=== PATIENT | male | born 1995 | race Caucasian/White ===

== ENCOUNTER 2021-07-20 09:11 | Emergency (ER) | payer OTHER, SELFPAY ==
[2021-07-20 09:15] VITALS: PULSE 80; RESP 18; TEMP 36.6; O2SAT 100
--- NOTE | 2021-07-20 09:20 | ECG_ITS ---
Measurements Intervals [place] Rate: 64 P: 51 NC: 135 QRS: 72 QRSD: 98 T: 47 QT: 372 QTc: 385 Interpretive Statements SINUS RHYTHM NORMAL ECG NO PREVIOUS ECG AVAILABLE FOR COMPARISON Electronically Signed On 07-20-2021 16:23:00 CDT by Pete Jacinto M.D.
[2021-07-20 09:35] LABS: Basophils Absolute Auto 0.1 K/mm3 (0.0-0.1); Basophils Percent Auto 1.2 % (0.2-1.2); Eosinophils Absolute Auto 0.3 K/mm3 (0-0.3); Eosinophils Percent Auto 5.6 % (0-4.4); Hematocrit 44.2 % (42.0-52.0); Hemoglobin 15.9 g/dL (14.0-18.0); Immature Granulocyte Absolute 0.01 K/mm3 (0.00-0.031); Immature Granulocyte Percent A 0.2 % (0-0.5); Lymphocytes Absolute Auto 1.69 K/mm3 (0.9-3.2); Lymphocytes Percent Auto 33.7 % (18.3-44.2); Mean Corpuscular Volume 86.2 fl (80-100); Mean Platelet Volume 10.4 fl (7.4-10.4); Monocytes Absolute Auto 0.4 K/mm3 (0.1-0.6); Monocytes Percent Auto 8.6 % (2.6-8.5); Neutrophils Absolute Auto 2.6 K/mm3 (1.3-6.7); Neutrophils Percent Auto 50.7 % (45.5-73.1); Platelet Count Result 268 k/mm3 (150-375); Red Blood Count 5.13 M/mm3 (4.6-6.20); Red Cell Distribution Width 11.8 % (11.5-14.5)
[2021-07-20 09:54] VITALS: BP 109/74; PULSE 63
[2021-07-20 09:55] VITALS: BP 121/89; BP 125/93; PULSE 67; PULSE 87
[2021-07-20 09:55] LABS: Alanine Aminotransferase 12 U/L (4-50); Albumin Level 4.9 g/dL (3.5-5.1); Alkaline Phosphatase 47 U/L (38-126); Anion Gap 10 mmol/L (8-16); Aspartate Amino Transferase 23 U/L (17-59); Bilirubin,Total 1.2 mg/dL (0.2-1.3); Blood Urea Nitrogen 10 mg/dL (9-20); Calcium 9.6 mg/dL (8.4-10.2); Carbon Dioxide 24 mmol/L (22-30); Chloride 105 mmol/L (98-107); Estimated CRCL calculation 106 ml/min; Estimated Glomerular Filt Rate > 60; Glucose 103 mg/dL (65-110); Potassium 4.1 mmol/L (3.4-5.0); Sodium 139 mmol/L (137-145)
--- NOTE | 2021-07-20 10:37 | ED.GENADULT ---
HPI - General Adult General Chief complaint: Unspecified Stated complaint: dizzy Time Seen by Provider: 07/20/21 09:16 History of Present Illness HPI narrative: Patient is a 26-year-old male who presents to the ER with feeling lightheaded like he might pass out. Reports he was driving when he began to feel warm and sweaty and lightheaded. He had no syncope. Reports he has been feeling under the weather over the last few days and had poor p.o. intake. He has had daily loose stools. No fevers or chills. No known sick contacts. Denies chest pain or chest pressure. He has had no racing of his heart. No alleviating factors that he can report. Related Data Home Medications Medication Instructions Recorded Confirmed No Home Medications 03/04/19 03/04/19 Allergies Allergy/AdvReac Type Severity Reaction Status Date / Time Sulfa (Sulfonamide Allergy Mild Unknown Verified 07/20/21 09:21 Antibiotics) milk Allergy Unknown Unknown Verified 07/20/21 09:21 Review of Systems Review of Systems: All systems reviewed & are unremarkable except as noted in HPI and below Constitutional: Constitutional: Denies chills, Denies fever(s) and Reports lethargy ENT: Reports nasal congestion and Reports sore throat Cardiovascular: Cardiovascular: Denies chest pain, Denies radiating jaw, neck or arm pain and Denies palpitations Gastrointestinal: Gastrointestinal: Denies abdominal pain, Denies diarrhea, Denies nausea and Denies vomiting Neurologic: Reports dizziness, Denies syncope, Denies headache(s) and Denies focal weakness PMFSH Past Medical History Medical History (Updated 07/20/21 @ 12:12 by Umair Diaz MD) GERD (gastroesophageal reflux disease) Social History Social History (Updated 03/08/19 @ 11:42 by Renny Allen MD) Smoking status: Never smoker Alcohol intake: never Gender identity (if verbalized by the patient): Male Exam Narrative: GENERAL: Well-appearing, well-nourished, and in no acute distress. HEAD: Normocephalic, atraumatic. EYES: PERRL and EOMI. CHEST: Clear to auscultation. No respiratory distress. HEART: Regular rate and rhythm. Normal peripheral pulses. ABDOMEN: Soft, nontender, nondistended. EXTREMITIES: Normal range of motion. No edema. SKIN: Warm, dry, no rash. NEURO: Alert and oriented x3. PSYCH: Normal mood and affect. Course Course Emergency Course: Patient resting comfortably. Informed results. Hydrated. Unremarkable lab work and orthostatics. Normal EKG. Discharge home. Vital Signs Vital signs: Vital Signs Temperature 98 F 07/20/21 09:15 Pulse Rate 80 07/20/21 09:15 Respiratory Rate 18 07/20/21 09:15 Pulse Oximetry 100 07/20/21 09:15 Temperature 98 F 07/20/21 09:15 Pulse Rate 68 07/20/21 11:57 Respiratory Rate 20 07/20/21 11:57 Blood Pressure 122/79 07/20/21 11:57 Pulse Oximetry 99 07/20/21 11:57 Medical Decision Making Vital Signs Vital Signs: Vital Signs Temperature 98 F 07/20/21 09:15 Pulse Rate 80 07/20/21 09:15 Respiratory Rate 18 07/20/21 09:15 Pulse Oximetry 100 07/20/21 09:15 Temperature 98 F 07/20/21 09:15 Pulse Rate 68 07/20/21 11:57 Respiratory Rate 20 07/20/21 11:57 Blood Pressure 122/79 07/20/21 11:57 Pulse Oximetry 99 07/20/21 11:57 Lab Data Result diagrams: 07/20/21 09:30 07/20/21 09:30 Labs: Lab Results 07/20/21 07/20/21 Range/Units 09:30 09:30 WBC 5.0 (4.5-10.0) K/mm3 RBC 5.13 (4.6-6.20) M/mm3 Hgb 15.9 (14.0-18.0) g/dL Hct 44.2 (42.0-52.0) % MCV 86.2 (80-100) fl MCH 31.0 (26-34) pg MCHC 36.0 (32-36) g/dl RDW 11.8 (11.5-14.5) % Plt Count 268 (150-375) k/mm3 MPV 10.4 (7.4-10.4) fl Immature Gran % (Auto) 0.2 (0-0.5) % Neut % (Auto) 50.7 (45.5-73.1) % Lymph % (Auto) 33.7 (18.3-44.2) % Slope % (Auto) 8.6 H (2.6-8.5) % Eos % (Auto) 5.6 H (0-4.4) % Baso % (Auto) 1.2
[2021-07-20] MEDS: SODIUM CHLORIDE 0.9% IV 1,000 ML 999 ML IV CONT (11:02)
[2021-07-20 11:57] VITALS: BP 122/79; PULSE 68; RESP 20; O2SAT 99
== END 2021-07-20 12:21 | disposition home or self-care (01) ==
PROVIDERS: Emergency Provider Emergency Medicine; PCP Internal Medicine
DX: R55 Syncope and collapse (principal); K21.9 Gastro-esophageal reflux disease without esophagitis
CPT/HCPCS: 36415; 80053; 85025; 93005; 96360; 99284; J7030

== ENCOUNTER 2021-12-09 13:15 | Emergency (ER) | payer OTHER, SELFPAY ==
--- NOTE | 2021-12-09 13:21 | ED.GENADULT ---
HPI - General Adult General Chief complaint: Nausea/Vomiting/Diarrhea Stated complaint: Vomiting,Diarrhea,Nausea,Body Aches and Pain Time Seen by Provider: 12/09/21 13:21 Source: patient Mode of arrival: ambulatory Limitations: no limitations History of Present Illness HPI narrative: 26-year-old male patient presents to the [facility] with complaints of nausea vomiting diarrhea that started yesterday. Patient states he has had a recent alcohol intake which last time was yesterday. Denies any marijuana use. Patient states that this is pretty chronic for him and he he gets nausea vomiting diarrhea pretty frequently and dehydrates very easily. Patient states he has seen a casting operator helper and states that they have found that he is allergic to milk but they cannot really find any other reason for his symptoms. Patient states he has had body aches and chills but denies any fevers. Denies any abdominal pain today. Patient requesting IV fluids. Related Data Allergies Allergy/AdvReac Type Severity Reaction Status Date / Time Sulfa (Sulfonamide Allergy Mild Unknown Verified 12/09/21 13:18 Antibiotics) milk Allergy Unknown Unknown Verified 12/09/21 13:18 Review of Systems Review of Systems: CONSTITUTIONAL: Denies fever, chills, or sweats. EYES: Denies visual changes, redness, or discharge. ENT: Denies rhinorrhea, congestion, sore throat, or otalgia. CARDIOVASCULAR: Denies chest pain, palpitations, or edema. RESPIRATORY: Denies cough or dyspnea. GASTROINTESTINAL: Denies abdominal pain, positive nausea, vomiting, and diarrhea. GENITOURINARY: Denies dysuria or hematuria. SKIN: Denies rash or itching. MUSCULOSKELETAL: Denies back pain, joint pain, or myalgia. NEUROLOGIC: Denies headache, numbness, or weakness. PSYCHIATRIC: Denies anxiety or depression. [facility] Past Medical History Medical History (Updated 12/09/21 @ 14:27 by MARSHAL Martin) Asthma Chronic vomiting GERD (gastroesophageal reflux disease) Surgical History Surgical History (Updated 12/09/21 @ 13:22 by MARSHAL Martin) History of tonsillectomy Social History Social History Smoking status: Never smoker Alcohol intake: never Gender identity (if verbalized by the patient): Male Comments At the time of my signature I agree with nursing past medical history, surgical, social, and family history. There is no relevant family history pertinent to the presenting complaint. Exam Narrative: GENERAL: Well-appearing, well-nourished, and in no acute distress. HEAD: Normocephalic, atraumatic. EYES: PERRLA and EOMI. ENT: Nares clear, no rhinorrhea or epistaxis. Mucous membranes moist. Bilateral TMs are clear no erythema or foreign bodies to the canal. Posterior pharynx with no erythema, tonsillar lodgment, exudates or lesions present. NECK: Supple. No lymphadenopathy CHEST: Clear to auscultation. No respiratory distress. HEART: Regular rate and rhythm. No murmur heard. Normal peripheral pulses. ABDOMEN: Soft, flat, nondistended. No guarding, rebound tenderness, or rigid. No pulsatilla masses. Bowel sounds present in all four quadrants. No organomegaly. Negative Chaney?s sign. No periumbicial tenderness. No Supra public tenderness or distension. Good femoral pulses bilaterally. No hernia noted. No scars or surface trauma. EXTREMITIES: Normal range of motion. No edema. SKIN: Warm, dry, no rash. NEURO: No focal deficits. Alert and oriented x3. Course Course Level of Care: Express Care Visit Reevaluation(s) Reevaluation #1: Reevaluated patient after receiving Zofran. Patient states he is feeling much better and has been able to keep down water without any issue. Discussed with him that his urine is suggestive of very mild dehydration but the fact that he is still producing urine is good. Discussed with patient that we will go ahead and discharge him home with a prescription for the Zofran and I would
[2021-12-09 13:23] VITALS: BP 124/77; PULSE 66; RESP 20; TEMP 36.3; O2SAT 100
[2021-12-09] MEDS: ONDANSETRON HCL ODT 4 MG TABLET PO (13:35)
== END 2021-12-09 14:33 | disposition home or self-care (01) ==
PROVIDERS: Emergency Provider Nurse Practitioner Family; PCP Internal Medicine
DX: J45.909 Unspecified asthma, uncomplicated (principal); K21.9 Gastro-esophageal reflux disease without esophagitis
CPT/HCPCS: 81003; 87426; 99213; A9270; C9803; G0463